=== PATIENT | female | born 1990 | race African-American/Black ===

== ENCOUNTER 2016-08-31 02:58 | Emergency (ER) | payer OTHER ==
[2016-08-31] MEDS ORDERED: AZITHROMYCIN 250 MG TABLET PO STA (03:34)
[2016-08-31] MEDS ORDERED: DEXAMETHASONE 10 MG/ML VIAL PO STA (03:34)
[2016-08-31] MEDS ORDERED: AZITHROMYCIN 250 MG TABLET PO ONE (03:37)
[2016-08-31] MEDS ORDERED: DEXAMETHASONE 10 MG/ML VIAL ONE (03:37)
== END 2016-08-31 04:42 | disposition home or self-care (01) ==
DX: S06.0X0A Concussion without loss of consciousness, initial encounter (principal); W16.212A Fall in (into) filled bathtub causing other injury, initial encounter; Y93.E1 Activity, personal bathing and showering; Y92.002 Bathroom of unspecified non-institutional (private) residence as the place of occurrence of the external cause; F17.200 Nicotine dependence, unspecified, uncomplicated
CPT/HCPCS: 70450; 72125; 99283; 99284; A9270

== ENCOUNTER 2017-06-15 19:00 | Emergency (ER) | payer OTHER ==
[2017-06-15 19:55] LABS: RAPID STREP SCREEN REAGENT QC YELLOW (YELLOW)
[2017-06-15 21:49] VITALS: BP 125/87
[2017-06-15] MEDS ORDERED: IBUPROFEN 600 MG TABLET PO STA (21:50)
--- NOTE | 2017-06-15 22:00 | ED Physician Documentation ---
PD HPI URI - Stated complaint Stated Complaint: SORE THROAT - Chief complaint Chief Complaint: Heent - History obtained from History obtained from: Patient - History of Present Illness Timing - onset: How many days ago (3) Timing details: Gradual onset, Still present Associated symptoms: Ear pain, Nasal congestion, Sinus pain, Sore throat, Dry cough. No: Fever, Chills Contributing factors: Sick contact Similar symptoms before: Work up / diagnostics, Treatment Recently seen: Not recently seen - Additional information Additional information: Patient is a 26 year old female with no significant past medical history who is presenting to the emergency department for ear pain, sore throat and nasal congestion. Patient's son had strep throat last week, and she was bringing her other son in today to get checked out, so she wanted to get checked as well. Review of Systems Constitutional: denies: Fever, Chills Eyes: denies: Discharge, Irritation Ears: reports: Ear pain. denies: Drainage/discharge, Foreign body Nose: reports: Rhinorrhea / runny nose, Congestion Throat: reports: Sore throat Cardiac: denies: Chest pain / pressure, Palpitations Respiratory: reports: Cough GI: denies: Nausea, Vomiting : reports: Reviewed and negative Skin: reports: Reviewed and negative Musculoskeletal: denies: Neck pain, Back pain Neurologic: denies: Generalized weakness, Focal weakness, Numbness Immunocompromised: denies: Immunocompromised PD PAST MEDICAL HISTORY - Past Medical History Past Medical History: Yes Cardiovascular: None Respiratory: Asthma Neuro: Headache/migraine, Motion sickness Endocrine/Autoimmune: None GI: Other [employer] CONTACT: Endometriosis, Ovarian cysts : Other HEENT: None Psych: Depression, Anxiety, ADD/ADHD, Post traumatic stress disorder Musculoskeletal: None Derm: None - Past Surgical History Past Surgical History: Yes General: Cholecystectomy - Present Medications Home Medications: Ambulatory Orders Medication Instructions Recorded Confirmed Dextroamphetamine/Amphetamine 15 mg ORAL DAILY 02/24/15 02/24/16 [Adderall 15 mg Tablet] Escitalopram Oxalate [Lexapro] 20 mg ORAL DAILY 02/24/15 02/24/16 Albuterol Sulfate [Ventolin Hfa] 2 puffs IH Q4HR PRN #1 hfa.aer.ad 10/01/15 Nitrofurantoin Monohyd/M-Cryst 100 mg ORAL BID 02/24/16 02/24/16 [Macrobid 100 mg Capsule] Ondansetron Odt [Zofran] 4 mg TL Q6H PRN #10 tablet 02/24/16 Oxycodone HCl/Acetaminophen 1 - 2 each PO Q6H PRN #14 tablet 02/24/16 [Percocet 5-325 mg Tablet] Phenazopyridine [Pyridium] 200 mg PO TID 02/24/16 02/24/16 Sulfamethoxazole/Trimethoprim 1 each PO BID 7 Days tablet 02/24/16 [Bactrim Ds Tablet] buPROPion [Wellbutrin Xl] 150 mg PO DAILY 02/24/16 02/24/16 Azithromycin [Zithromax] 250 mg PO DAILY #4 tablet 08/31/16 - Allergies Allergies/Adverse Reactions: Allergies Allergy/AdvReac Type Severity Reaction Status Date / Time acetaminophen [From Vicodin] AdvReac Nausea Verified 06/15/17 19:24 hydrocodone bitartrate * AdvReac Nausea Verified 06/15/17 19:24 [From Vicodin] - Social History Does the pt smoke?: Yes Smoking Status: Current every day smoker Does the pt drink ETOH?: No Does the pt have substance abuse?: No - Immunizations Immunizations are current?: Yes - POLST Patient has POLST: No PD ED PE NORMAL - Vitals Vital signs reviewed: Yes - General General: Alert and oriented X 3, No acute distress, Well developed/nourished - HEENT HEENT: Atraumatic, PERRL, Moist mucous membranes - Neck Neck: Supple, no meningeal sign - Cardiac Cardiac: RRR, No murmur - Respiratory Respiratory: No respiratory distress, Clear bilaterally - Abdomen Abdomen: Soft, Non tender, Non distended - Derm Derm: Normal color, Warm and dry, No rash - Extremities Extremities: No deformity - Neuro Neuro: Alert and oriented X 3, No motor deficit - Psych Psych: Normal mood PD ED PE EXPANDED - HEENT HEENT: Nasal congestion, Pharyngeal erythema, Other (mild serous fluid bilateral ears). No: R TM red, R TM loss of landmarks, L TM red, Tonsillar exudate, Soft palate petecchiae Results - Vitals Vitals: Vital Signs - 24 hr 06/15/17 06/15/17 19:25 21:48 Temperature 37.1 C 36.5 C Heart Rate 96 84 Respiratory 18 18 Rate Blood Pressure 129/88 H 125/87 H O2 Saturation 98 100 Oxygen O2 Source Room air - Labs Labs: Laboratory Tests 06/15/17 19:29 Group A Strep Rapid Negative PD MEDICAL DECISION MAKING - ED course Complexity details: reviewed old records, reviewed results, re-evaluated patient , considered differential, d/w patient ED course: Patient was seen and examined at bedside. Patient's throat was swabbed but was negative. Patient's symptoms were likely viral in nature. Patient was treated with ibuprofen for pain. Patient required no further work up and was stable for discharge with outpatient follow up. Departure - Departure Disposition: 01 Home, Self Care Clinical Impression: Upper respiratory infection Condition: Good Instructions: Sore Throat Follow-Up: primary,care provider [Other] - As Needed Comments: Your rapid strep test today was negative. the cultures will be sent off and will come back in the next three days. You can take motrin or tylenol as needed for pain. You should follow up with your doctor if your symptoms persist. You will be called if the culture results are positive. You may return to the emergency department at any time for new, worsening or uncontrollable symptoms. Discharge Date/Time: 06/15/17 22:36
[2017-06-15] MEDS ORDERED: IBUPROFEN 600 MG TABLET PO ONE (22:07)
== END 2017-06-15 22:36 | disposition home or self-care (01) ==
LOC: ED 19:00
DX: J06.9 Acute upper respiratory infection, unspecified (principal); J45.909 Unspecified asthma, uncomplicated; F17.200 Nicotine dependence, unspecified, uncomplicated
CPT/HCPCS: 87070; 87430; 99283; A9270

== ENCOUNTER 2018-08-06 00:14 | Emergency (ER) | payer OTHER ==
[2018-08-06 00:46] LABS: BILIRUBIN,URINE NEGATIVE (NEGATIVE); GLUCOSE, URINE (UA) NEGATIVE (NEGATIVE); KETONES,URINE (UA) NEGATIVE (NEGATIVE); LEUKOCYTE ESTERASE, URINE TRACE (NEGATIVE); NITRITE,URINE NEGATIVE (NEGATIVE); OCCULT BLOOD,URINE NEGATIVE (NEGATIVE); PH,URINE 6.5 PH (5.0-7.5); PROTEIN,URINE NEGATIVE (NEGATIVE); UROBILINOGEN,URINE 0.2 (NORMAL) E.U./dL (NORMAL)
[2018-08-06] MEDS ORDERED: KETOROLAC 60 MG/2 ML VIAL IM STA (00:47)
[2018-08-06 00:56] LABS: CLARITY,URINE SL. CLOUDY (CLEAR); HCG UR QUAL NEGATIVE
[2018-08-06 01:04] LABS: RBC,URINE None Seen /HPF (0-5); SQUAMOUS EPITHELIAL CELL,UR MOD Squamous (<= Few)
[2018-08-06 01:05] LABS: BACTERIA,URINE Rare /HPF (None Seen)
[2018-08-06] MEDS ORDERED: ONDANSETRON ODT 4 MG TABLET TL STA (01:11)
[2018-08-06] MEDS ORDERED: ONDANSETRON ODT 4 MG Prepack 2 TL PRN (01:12)
--- NOTE | 2018-08-06 01:21 | ED Physician Documentation ---
PD HPI ABD PAIN - Stated complaint Stated Complaint: LT FLANK PAIN - Chief complaint Chief Complaint: Back Pain - History obtained from History obtained from: Patient - History of Present Illness Timing - onset: How many days ago (3) Timing - duration: Days (3) Timing - details: Gradual onset, Still present Quality: Sharp, Pain Location: LUQ Radiation: Left flank Improved by: Laying still Worsened by: Moving, Position, Palpation Associated symptoms: Nausea, Dysuria. No: Vomiting Similar symptoms before: Diagnosis (endometriosis) Recently seen: Clinic - Additional information Additional information: 27-year-old female with a history of endometriosis has developed some pain in her left flank. She developed symptoms of urinary frequency and urgency about 3 days ago and then developed this left flank pain. She became nauseated and felt quite ill and went to the clinic for evaluation. She was diagnosed with urinary tract infection and pyelonephritis and she has been placed on metronidazole and Cipro. She did not ask for anything for pain and the pain is now become intolerable. She started antibiotics yesterday. She has some nausea but no vomiting. Review of Systems Constitutional: reports: Fever, Chills Eyes: denies: Decreased vision Ears: denies: Ear pain Nose: denies: Rhinorrhea / runny nose, Congestion Throat: denies: Sore throat Cardiac: denies: Chest pain / pressure, Palpitations Respiratory: denies: Dyspnea, Cough, Wheezing GI: reports: Abdominal Pain, Nausea. denies: Vomiting, Constipation, Diarrhea : reports: Dysuria, Frequency Skin: denies: Rash Musculoskeletal: reports: Back pain Neurologic: denies: Generalized weakness, Focal weakness, Numbness PD PAST MEDICAL HISTORY - Past Medical History Cardiovascular: None Respiratory: Asthma Endocrine/Autoimmune: None GI: Other INTERMEDIATE CARD TENDER: Endometriosis, Ovarian cysts : Other HEENT: None Psych: ADD/ADHD, Post traumatic stress disorder Musculoskeletal: None Derm: None - Past Surgical History Past Surgical History: Yes General: Cholecystectomy - Present Medications Home Medications: Ambulatory Orders Medication Instructions Recorded Confirmed Ciprofloxacin HCl [Cipro] 500 mg PO BID 08/06/18 08/06/18 Fluconazole [Diflucan] 100 mg PO 08/06/18 Methylphenidate HCl [Concerta] 27 mg PO QDBREAKFAST 08/06/18 08/06/18 Metronidazole 250 mg PO BID 08/06/18 08/06/18 Ondansetron Odt [Zofran] 4 mg TL Q6H PRN #10 tablet 08/06/18 Oxycodone HCl/Acetaminophen 1 - 2 each PO Q6H PRN #14 tablet 08/06/18 [Percocet 5-325 mg Tablet] - Allergies Allergies/Adverse Reactions: Allergies Allergy/AdvReac Type Severity Reaction Status Date / Time acetaminophen [From Vicodin] AdvReac Nausea Verified 08/06/18 00:24 hydrocodone bitartrate * AdvReac Nausea Verified 08/06/18 00:24 [From Vicodin] - Social History Does the pt smoke?: Yes Smoking Status: Current every day smoker Does the pt drink ETOH?: No Does the pt have substance abuse?: No - Immunizations Immunizations are current?: Yes - POLST Patient has POLST: No PD ED PE NORMAL - Vitals Vital signs reviewed: Yes (hypertensive ) - General General: Alert and oriented X 3, Well developed/nourished, Other (Look of yuk on the face consistent with pain ) - HEENT HEENT: Atraumatic, PERRL, EOMI - Neck Neck: Supple, no meningeal sign - Cardiac Cardiac: RRR, No murmur - Respiratory Respiratory: No respiratory distress, Clear bilaterally - Abdomen Abdomen: Normal bowel sounds, Soft, Other (LUQ tenderness marissa with bimanual palpation of the left kidney) - Back Back: No spinal TTP, Other (L CVA tenderness) - Derm Derm: Normal color, Warm and dry, No rash - Extremities Extremities: No deformity, No edema - Neuro Neuro: Alert and oriented X 3, industrial editor 2-12 intact, No motor deficit, No sensory deficit, Normal speech Eye Opening: Spontaneous Motor: Obeys Commands Verbal: Oriented GCS Score: 15 - Psych Psych: Normal mood, Normal affect Results - Vitals Vitals: Vital Signs - 24 hr 08/06/18 08/06/18 00:21 00:24 Temperature 36.5 C 36.6 C Heart Rate 77 72 Respiratory 17 18 Rate Blood Pressure 137/85 H O2 Saturation 96 100 Oxygen O2 Source Room air - Labs Labs: Laboratory Tests 08/06/18 08/06/18 00:27 00:27 Urine Color YELLOW Urine Clarity SL. CLOUDY Urine pH 6.5 Ur Specific [place] 1.025 1.025 Urine Protein NEGATIVE Urine Glucose (UA) NEGATIVE Urine Ketones NEGATIVE Urine Occult Blood NEGATIVE Urine Nitrite NEGATIVE Urine Bilirubin NEGATIVE Urine Urobilinogen 0.2 (NORMAL) Ur Leukocyte Esterase TRACE H Urine RBC None Seen Urine WBC 6-10 H Ur Squamous Epith Cells MOD Squamous H Urine Bacteria Rare Ur Microscopic Review INDICATED Urine Culture Comments NOT INDICATED Urine HCG, Qual NEGATIVE PD MEDICAL DECISION MAKING - ED course Complexity details: reviewed results, re-evaluated patient, considered differential, d/w patient ED course: 27-year-old female with pyelonephritis has persistent pain and she is requesting pain medication. She is administered Toradol 60 mg IM with some relief of her pain and she is dispensed Percocet. She is also given Zofran. Empiric antibiotic therapy has begun and I suspect the patient's infection will be controlled her pain may last several more days. Departure - Departure Disposition: 01 Home, Self Care Clinical Impression: Pyelonephritis Condition: Stable Instructions: ED Kidney Infec Female Follow-Up: [facility] [Provider Group] Prescriptions: Ondansetron Odt [Zofran] 4 mg TL Q6H PRN #10 tablet PRN Reason: Nausea / Vomiting Oxycodone HCl/Acetaminophen [Percocet 5-325 mg Tablet] 1 - 2 each PO Q6H PRN #14 tablet PRN Reason: pain
[2018-08-06] MEDS ORDERED: oxyCODONE/ACET 5/325 Prepack 4 PO STA (01:24)
[2018-08-06 01:33] VITALS: BP 130/96
== END 2018-08-06 01:35 | disposition home or self-care (01) ==
LOC: ED 00:14
DX: N12 Tubulo-interstitial nephritis, not specified as acute or chronic (principal); F17.200 Nicotine dependence, unspecified, uncomplicated
CPT/HCPCS: 81001; 81025; 96372; 99283; Q0162; 81003; 87086

== ENCOUNTER 2018-08-11 18:13 | Emergency (ER) | payer OTHER ==
[2018-08-11 18:57] LABS: BASOPHILS % (AUTO) 0.6 %; EOSINOPHILS % (AUTO) 0.4 %; HGB - HEMOGLOBIN 13.1 g/dL (12.0-16.0); LYMPHOCYTES # (AUTO) 2.5 10^3/uL (1.5-3.5); LYMPHOCYTES % (AUTO) 30.4 %; MEAN CORPUSCULAR HEMOGLOBIN 26.1 pg (27.0-31.0); MEAN CORPUSCULAR HGB CONC 32.6 g/dL (32.0-36.0); MEAN CORPUSCULAR VOLUME 80.1 fL (81.0-99.0); MEAN PLATELET VOLUME 8.2 fL (7.9-10.8); MONOCYTES # (AUTO) 0.5 10^3/uL (0.0-1.0); MONOCYTES % (AUTO) 6.3 %; NEUTROPHILS % (AUTO) 62.3 %; PLT - PLATELET COUNT 270 10^3/uL (130-450); RED BLOOD COUNT 5.03 10^6/uL (4.20-5.40); RED CELL DISTRIBUTION WIDTH 15.1 % (12.0-15.0); WHITE BLOOD COUNT 8.1 x10^3/uL (4.8-10.8)
[2018-08-11 19:11] LABS: ALBUMIN 4.3 g/dL (3.2-5.5); ALBUMIN/GLOBULIN RATIO 1.6 (1.0-2.2); BILIRUBIN,TOTAL 0.6 mg/dL (0.2-1.0)
[2018-08-11 19:20] LABS: BILIRUBIN,URINE NEGATIVE (NEGATIVE); GLUCOSE, URINE (UA) NEGATIVE (NEGATIVE); KETONES,URINE (UA) NEGATIVE (NEGATIVE); LEUKOCYTE ESTERASE, URINE NEGATIVE (NEGATIVE); NITRITE,URINE NEGATIVE (NEGATIVE); OCCULT BLOOD,URINE SMALL (NEGATIVE); PROTEIN,URINE NEGATIVE (NEGATIVE); UROBILINOGEN,URINE 0.2 (NORMAL) E.U./dL (NORMAL)
[2018-08-11 19:23] LABS: CLARITY,URINE CLEAR (CLEAR); HCG UR QUAL NEGATIVE
[2018-08-11 19:32] LABS: BACTERIA,URINE None Seen /HPF (None Seen); RBC,URINE 0-5 /HPF (0-5); SQUAMOUS EPITHELIAL CELL,UR FEW Squamous (<= Few)
[2018-08-11 21:41] VITALS: BP 138/99
[2018-08-11] MEDS ORDERED: KETOROLAC 30 MG/ML VIAL IM STA (21:48)
--- NOTE | 2018-08-11 21:51 | ED Physician Documentation ---
PD HPI FEMALE - Stated complaint Stated Complaint: URINATING BLOOD/FEV - Chief complaint Chief Complaint: General - History obtained from History obtained from: Patient - History of Present Illness Timing - onset: How many days ago (few) Timing - duration: Days (She had had some dysuria and flank pain for the past week. She was seen in clinic 4 days ago and had a urine test and a pelvic exam. She states she was diagnosed with UTI and bacterial vaginitis and treated with Cipro and Flagyl. She is continued with the pain in the flank area on the left. Her dysuria has improved. However she has noticed some blood in the urine the last day or 2. She is here because of concern of the persistent pain and also now blood in the urine.) Timing - details: Waxing and waning Associated symptoms: Back pain (left flank), Dysuria. No: Fever, Pelvic pain, Vaginal discharge Recently seen: Clinic Review of Systems Constitutional: denies: Fever, Chills Nose: denies: Rhinorrhea / runny nose, Congestion Throat: denies: Sore throat Respiratory: denies: Cough GI: reports: Abdominal Pain, Nausea. denies: Vomiting, Constipation, Diarrhea : reports: Frequency, Hematuria. denies: Discharge Skin: denies: Rash, Lesions PD PAST MEDICAL HISTORY - Past Medical History Cardiovascular: None Respiratory: Asthma Endocrine/Autoimmune: None GI: Other FLOOR TILING PROFESSIONAL: Endometriosis, Ovarian cysts : Other HEENT: None Psych: ADD/ADHD, Post traumatic stress disorder Musculoskeletal: None Derm: None - Past Surgical History Past Surgical History: Yes General: Cholecystectomy - Present Medications Home Medications: Ambulatory Orders Medication Instructions Recorded Confirmed Ciprofloxacin HCl [Cipro] 500 mg PO BID 08/06/18 08/06/18 Fluconazole [Diflucan] 100 mg PO 08/06/18 Methylphenidate HCl [Concerta] 27 mg PO QDBREAKFAST 08/06/18 08/06/18 Metronidazole 250 mg PO BID 08/06/18 08/06/18 Ondansetron Odt [Zofran] 4 mg TL Q6H PRN #10 tablet 08/06/18 Oxycodone HCl/Acetaminophen 1 - 2 each PO Q6H PRN #14 tablet 08/06/18 [Percocet 5-325 mg Tablet] Cephalexin [Keflex] 500 mg PO TID #21 capsule 08/11/18 Naproxen 500 mg PO BID #20 tablet 08/11/18 - Allergies Allergies/Adverse Reactions: Allergies Allergy/AdvReac Type Severity Reaction Status Date / Time acetaminophen [From Vicodin] AdvReac Nausea Verified 08/11/18 18:43 hydrocodone bitartrate * AdvReac Nausea Verified 08/11/18 18:43 [From Vicodin] - Social History Does the pt smoke?: Yes Smoking Status: Current every day smoker Does the pt drink ETOH?: No Does the pt have substance abuse?: No - Immunizations Immunizations are current?: Yes - POLST Patient has POLST: No PD ED PE NORMAL - Vitals Vital signs reviewed: Yes - General General: Alert and oriented X 3, No acute distress, Well developed/nourished - Abdomen Abdomen: Normal bowel sounds, Soft, Non tender, Non distended - Female Female : Deferred - Rectal Rectal: Deferred - Back Back: Other (some left CVA tenderness) - Derm Derm: Normal color, Warm and dry Results - Vitals Vitals: Oxygen O2 Source Room air - Labs Labs: Laboratory Tests 08/11/18 08/11/18 08/11/18 18:53 18:53 18:55 WBC 8.1 RBC 5.03 Hgb 13.1 Hct 40.3 MCV 80.1 L MCH 26.1 L MCHC 32.6 RDW 15.1 H Plt Count 270 MPV 8.2 Neut # (Auto) 5.0 Lymph # (Auto) 2.5 [place] # (Auto) 0.5 Eos # (Auto) 0.0 Baso # (Auto) 0.0 Absolute Nucleated RBC 0.01 Nucleated RBC % 0.1 Sodium 135 Potassium 3.0 L Chloride 101 Carbon Dioxide 25 Anion Gap 9.0 BUN 8 Creatinine 1.0 Estimated GFR (MDRD) 79 L Glucose 94 Calcium 9.0 Total Bilirubin 0.6 AST 24 ALT 20 Alkaline Phosphatase 88 Total Protein 7.0 Albumin 4.3 Globulin 2.7 Albumin/Globulin Ratio 1.6 Lipase 30 Urine Color YELLOW Urine Clarity CLEAR Urine pH 6.0 Ur Specific [place] <=1.005 Urine Protein NEGATIVE Urine Glucose (UA) NEGATIVE Urine Ketones NEGATIVE Urine Occult Blood SMALL H Urine Nitrite NEGATIVE Urine Bilirubin NEGATIVE Urine Urobilinogen 0.2 (NORMAL) Ur Leukocyte Esterase NEGATIVE Urine RBC 0-5 Urine WBC 0-3 Ur Squamous Epith Cells FEW Squamous Urine Bacteria None Seen Ur Microscopic Review INDICATED Urine Culture Comments NOT INDICATED Urine HCG, Qual NEGATIVE PD MEDICAL DECISION MAKING - ED course Complexity details: considered differential (She has been treated for UTI and bacterial vaginitis based on urine test and pelvic exam. She states she has continued with some flank pain despite being on the fifth day of the antibiotic treatment. Her urine test here appears good there was some trace of blood. We discussed possibilities of looking for alternatives such as kidney stone, kidney abscess or other process. Could consider CT scan but she and her would prefer to hold off on this for now and just add some anti-inflammatories to her regimen and finish the last day of her antibiotic. If she has persistent symptoms, she could try and different antibiotic. Given the persistent symptoms of the flank pain, I would consider possible persistent UTI even though the current urine appears okay since she is on an antibiotic that may be making it appear better than it should. However she does have consistent pains or discomfort, then other workup such as a scan may be indicated.), d/w patient Departure - Departure Disposition: 01 Home, Self Care Clinical Impression: Flank pain, acute UTI (urinary tract infection) Qualifiers: Urinary tract infection type: site unspecified Hematuria presence: with hematuria Qualified Code(s): N39.0 - Urinary tract infection, site not specified Condition: Stable Record reviewed to determine appropriate education?: Yes Follow-Up: Lizz Brenner MD [Primary Care Provider] - Prescriptions: Cephalexin [Keflex] 500 mg PO TID #21 capsule Naproxen 500 mg PO BID #20 tablet Comments: Finish your current medications antibiotics. Naproxen twice daily for the next 7-10 days. If you were to have persistent feverish weakness or dysuria (difficulty urinating), then I would be concerned for persistent infection and have you add cephalexin antibiotic. Otherwise follow-up with your primary care in the next few days if not improving. Discharge Date/Time: 08/11/18 22:04
== END 2018-08-11 22:04 | disposition home or self-care (01) ==
LOC: ED 18:13
DX: R10.31 Right lower quadrant pain (principal); N39.0 Urinary tract infection, site not specified; F17.200 Nicotine dependence, unspecified, uncomplicated
CPT/HCPCS: 36415; 80053; 81001; 81003; 81025; 83690; 85025; 87086; 96372; 99283